=== PATIENT | female | born 1995 | race Caucasian/White ===

== ENCOUNTER 2017-07-23 17:32 | Emergency (ER) | payer OTHER ==
[2017-07-23 19:32] VITALS: BP 115/69
--- NOTE | 2017-07-23 20:04 | UC ---
Respiratory Complaint HPI - HPI Summary HPI Summary: 22 yo female with > one week hx sinus pressure and pain /post nasal drip , nasal congestion now with moderate sore throat fever/chills - History of Current Complaint Chief Complaint: UCRespiratory Stated Complaint: SINUSES Time Seen by Provider: 07/23/17 19:26 Hx Obtained From: Patient Hx Last Menstrual Period: 07/08/17 Onset/Duration: Gradual Onset, Lasting Weeks Severity Initially: Mild Severity Currently: Moderate Pain Intensity: 6 Pain Scale Used: 0-10 Numeric Character: Cough: Nonproductive Associated Signs And Symptoms: Positive: Nasal Congestion, Sinus Discomfort - Allergies/Home Medications Allergies/Adverse Reactions: Allergies Allergy/AdvReac Type Severity Reaction Status Date / Time No Known Allergies Allergy Verified 07/23/17 19:24 Home Medications: Home Medications Ibuprofen TAB* [Advil TAB*] 400 mg PO Q6H PRN 07/23/17 [History Confirmed ] Pseudoephedrine TAB* [Sudafed TAB*] 30 mg PO Q6H PRN 07/23/17 [History Confirmed 07/23/17] guaiFENesin ER TAB [Mucinex*] 600 mg PO BID 07/23/17 [History Confirmed 07/23/17 ] PMH/Surg Hx/FS Hx/Imm Hx Previously Healthy: Yes - Surgical History Surgical History: None - Family History Known Family History: Positive: Hypertension - Social History Alcohol Use: Occasionally Substance Use Type: None Smoking Status (MU): Never Smoked Tobacco Review of Systems Constitutional: Fever, Chills Skin: Negative Eyes: Negative ENT: Sore Throat, Ear Ache, Nasal Discharge Respiratory: Cough Cardiovascular: Negative Gastrointestinal: Negative Genitourinary: Negative Motor: Negative Neurovascular: Negative Musculoskeletal: Negative Neurological: Negative Psychological: Negative Is Patient Immunocompromised?: No All Other Systems Reviewed And Are Negative: Yes Physical Exam Triage Information Reviewed: Yes Appearance: Well-Appearing, No Pain Distress, Well-Nourished Vital Signs: Initial Vital Signs Temp 98.3 F 07/23/17 19:26 Pulse 114 07/23/17 19:26 Resp 16 07/23/17 19:26 BP 115/69 07/23/17 19:26 Pulse Ox 99 07/23/17 19:26 Eyes: Positive: Conjunctiva Clear ENT: Positive: Hearing grossly normal, Pharyngeal erythema, Nasal congestion, Nasal drainage, Tonsillar swelling, Sinus tenderness - max>ethmoid, Uvula midline. Negative: Tonsillar exudate, Trismus, Muffled voice, Hoarse voice Neck: Positive: Supple, Nontender, No Lymphadenopathy Respiratory: Positive: Lungs clear, Normal breath sounds, No respiratory distress, No accessory muscle use Cardiovascular: Positive: RRR, No Murmur Musculoskeletal: Positive: ROM Intact, No Edema Neurological: Positive: Alert Psychological Exam: Normal Skin Exam: Normal UC Diagnostic Evaluation - Laboratory Pertinent Lab Values Are: WNL - strep (-) O2 Sat by Pulse Oximetry: 99 - normal/not hypoxic Respiratory Course/Dx - Differential Dx/Diagnosis Provider Diagnoses: acute sinusitis. pharyngitis Discharge - Sign-Out/Discharge Documenting (check all that apply): Discharge/Admit/Transfer - Discharge Plan Condition: Stable Disposition: HOME Prescriptions: Amoxicillin PO (*) [Amoxicillin 875 MG (*)] 875 mg PO BID #20 tab Referrals: Non Staff,Doctor [Primary Care Provider] - - Billing Disposition and Condition Condition: STABLE Disposition: HOME
== END 2017-07-23 20:18 | disposition home or self-care (01) ==
LOC: UCCORT 17:32
DX: J01.90 Acute sinusitis, unspecified (principal); J02.9 Acute pharyngitis, unspecified
CPT/HCPCS: 87651; 99202; G0463

== ENCOUNTER 2018-01-21 16:45 | Emergency (ER) | payer OTHER ==
[2018-01-21 17:17] VITALS: BP 117/75
--- NOTE | 2018-01-21 17:30 | ED ---
Upper Extremity Pain - HPI Summary HPI Summary: 22 yr old female with the complaint of left thumb pain. Onset of pain today, after slamming hand in metal door. Pain is moderate in intensity. Bruising associated with hit. Worse with movement. - History of Current Complaint Chief Complaint: UCUpperExtremity Stated Complaint: RIGHT THUMB INJURY Time Seen by Provider: 01/21/18 17:21 Hx Last Menstrual Period: 01/02/18 - Allergies/Home Medications Allergies/Adverse Reactions: Allergies Allergy/AdvReac Type Severity Reaction Status Date / Time No Known Allergies Allergy Verified 01/21/18 17:10 Home Medications: Home Medications NK [No Home Medications Reported] 01/21/18 [History Confirmed 01/21/18] PMH/Surg Hx/FS Hx/Imm Hx Infectious Disease History: No Infectious Disease History: Denies: Traveled Outside the [place] in Last 30 Days - Family History Known Family History: Positive: Hypertension - Social History Alcohol Use: Occasionally Substance Use Type: Reports: None Smoking Status (MU): Never Smoked Tobacco Review of Systems Constitutional: Negative Positive: Other - thumb pain All Other Systems Reviewed And Are Negative: Yes Physical Exam Triage Information Reviewed: Yes Vital Signs On Initial Exam: Initial Vitals Temp Pulse Resp BP Pulse Ox 98 F 73 18 117/75 99 01/21/18 17:11 01/21/18 17:11 01/21/18 17:11 01/21/18 17:11 01/21/18 17:11 Vital Signs Reviewed: Yes Appearance: Positive: Well-Appearing, No Pain Distress Skin: Positive: Warm Head/Face: Positive: Normal Head/Face Inspection Neck: Positive: Nontender Respiratory/Lung Sounds: Positive: Clear to Auscultation, Breath Sounds Present Cardiovascular: Positive: RRR. Negative: Murmur Abdomen Description: Positive: Nontender Musculoskeletal: Positive: Strength/ROM Intact, Other - bruisin over the proximal thumb and small sub ungal hematoma, tender over the middle and distal phalynx thumb. Neurological: Positive: Sensory/Motor Intact, Alert, Oriented to Person Place, Time, CN Intact II-III Psychiatric: Positive: Normal Diagnostics - Vital Signs Vital Signs Temp Pulse Resp BP Pulse Ox 01/21/18 17:11 98 F 73 18 117/75 99 - Laboratory Lab Statement: Any lab studies that have been ordered have been reviewed, and results considered in the medical decision making process. - Radiology left thumb Radiology Interpretation Completed By: Radiologist Summary of Radiographic Findings: NAD Course/Dx - Course Course Of Treatment: 22 yr old with contusion to thumb. DC home. - Diagnoses Provider Diagnoses: Contusion, thumb Discharge - Sign-Out/Discharge Documenting (check all that apply): Patient Departure All imaging exams completed and their final reports reviewed: Yes - Discharge Plan Condition: Good Disposition: HOME Patient Education Materials: Contusion in Adults (ED) Referrals: No Primary Care Phys,NOPCP [Primary Care Provider] [facility] - Billing Disposition and Condition Condition: GOOD Disposition: Home
--- NOTE | 2018-01-21 17:57 | RAD ---
HISTORY: pain in thumb and 1st metacarpal, slammed in door COMPARISONS: None VIEWS: 3 , Frontal, lateral, and oblique views of the first digit of the left hand FINDINGS: BONE DENSITY: Normal. BONES: There is no displaced fracture. JOINTS: There is no arthropathy. ALIGNMENT: There is no dislocation. SOFT TISSUES: Unremarkable. OTHER FINDINGS: None. IMPRESSION: NO ACUTE OSSEOUS INJURY. IF SYMPTOMS PERSIST, RECOMMEND REPEAT IMAGING.
== END 2018-01-21 18:06 | disposition home or self-care (01) ==
LOC: UCCORT 16:45
DX: S60.012A Contusion of left thumb without damage to nail, initial encounter (principal); W23.0XXA Caught, crushed, jammed, or pinched between moving objects, initial encounter; Y92.9 Unspecified place or not applicable
CPT/HCPCS: 99212; G0463

== ENCOUNTER 2018-05-30 16:15 | Emergency (ER) | payer OTHER ==
[2018-05-30 18:03] VITALS: BP 106/69
--- NOTE | 2018-05-30 18:43 | UC ---
Throat Pain/Nasal Tobin HPI - HPI Summary HPI Summary: 23-year-old female presents with a 9 day history of possibly worsening nasal congestion, nasal discharge, sinus pressure, postnasal, mild sore throat, and an occasionally productive cough for yellow sputum. Symptoms associated with some chills but no known fever. States she was using Mucinex with no improvement so was seen in the [facility] 2 days ago and given a decongestant with no improvement. States she has also been using fluticasone nasal spray. Denies ear pain, dysphagia, chest pain, difficulty breathing, abdominal pain, nausea, vomiting, diarrhea. - History of Current Complaint Chief Complaint: UCGeneralIllness Stated Complaint: COUGH,CONGESTION Time Seen by Provider: 05/30/18 18:10 Hx Obtained From: Patient Hx Last Menstrual Period: 05/17/18 Pain Intensity: 4 - Allergies/Home Medications Allergies/Adverse Reactions: Allergies Allergy/AdvReac Type Severity Reaction Status Date / Time No Known Allergies Allergy Verified 05/30/18 17:56 Home Medications: Home Medications Pseudoephedrine HCl [Nasal Decongestant] 30 mg PO Q4H PRN 05/30/18 [History Confirmed 05/30/18] guaiFENesin ER TAB [Mucinex*] 600 mg PO BID PRN 05/30/18 [History Confirmed 04/19] PMH/Surg Hx/FS Hx/Imm Hx Previously Healthy: Yes - Denies significant PMH - Surgical History Surgical History: None - Family History Known Family History: Positive: Hypertension - Social History Occupation: Student Lives: Dormitory/Roommates Alcohol Use: Occasionally Substance Use Type: None Smoking Status (MU): Never Smoked Tobacco Review of Systems All Other Systems Reviewed And Are Negative: Yes Constitutional: Positive: Chills. Negative: Fever Eyes: Negative: Drainage, Eye Redness ENT: Positive: Sore Throat, Nasal Discharge, Sinus Congestion, Sinus Pain/ Tenderness. Negative: Ear Ache Respiratory: Positive: Cough. Negative: Shortness Of Breath Cardiovascular: Negative: Palpitations, Chest Pain Gastrointestinal: Negative: Abdominal Pain, Vomiting, Diarrhea, Nausea Genitourinary: Positive: Negative Musculoskeletal: Positive: Negative Neurological: Positive: Negative Is Patient Immunocompromised?: No Physical Exam - Summary Physical Exam Summary: GENERAL APPEARANCE: Well developed, well nourished, alert and cooperative, and appears to be in no acute distress. EYES: Conjunctiva clear. No drainage. Vision is grossly intact. EARS: External auditory canals and tympanic membranes clear, hearing grossly intact. NOSE: Moderate nasal congestion. No nasal discharge. Maxillary sinus tenderness with palpation. THROAT: Pharynx normal. No tonsilar inflammation, swelling, exudate, or lesions. Uvula midline. Oral cavity normal. Teeth and gingiva in good general condition. NECK: Neck supple, non-tender without lymphadenopathy. CARDIAC: Normal S1 and S2. No S3, S4 or murmurs. Rhythm is regular. There is no peripheral edema, cyanosis or pallor. Extremities are warm and well perfused. Capillary refill is less than 2 seconds. Peripheral pulses intact. LUNGS: Clear to auscultation without rales, rhonchi, wheezing or diminished breath sounds. ABDOMEN: Positive bowel sounds. Soft, nondistended, nontender. No guarding or rebound. No masses or hepatosplenomegally. MUSKULOSKELETAL: ROM intact to all extremities. No joint erythema or tenderness. Normal muscular development. Normal gait. SKIN: Skin normal color, texture and turgor with no lesions or eruptions. Triage Information Reviewed: Yes Vital Signs: Initial Vital Signs Temp 98 F 05/30/18 17:59 Pulse 82 05/30/18 17:59 Resp 16 05/30/18 17:59 BP 106/69 05/30/18 17:59 Pulse Ox 99 05/30/18 17:59 Vital Signs Reviewed: Yes Throat Pain/Nasal Course/Dx - Course Assessment/Plan: 23-year-old female presents with a 9 day history of possibly worsening nasal congestion, nasal discharge, sinus pressure, postnasal, mild sore throat, and an occasionally productive cough for yellow sputum. Symptoms associated with some chills but no known fever. States she was using Mucinex with no improvement so was seen in the [facility] 2 days ago and given a decongestant with no improvement. States she has also been using fluticasone nasal spray. Denies ear pain, dysphagia, chest pain, difficulty breathing, abdominal pain, nausea, vomiting, diarrhea. Afebrile. Vital signs stable. Exam reveals a young adult female in no acute distress with moderate nasal congestion, some maxillary sinus tenderness, mild pharyngeal erythema without tonsillar swelling or exudate, no cervical lymphadenopathy, clear bilateral breath sounds, and otherwise unremarkable exam. Symptoms are likely from a acute sinus infection and considering the duration of her symptoms and progressively worsening of symptoms I will treat her for possible secondary bacterial infection with Augmentin 875 mg twice a day 10 days as well as symptomatic care. She is to return here or follow up with the hospital [facility] in 57 days if symptoms do not improve. Despite very guidance and warning symptoms were reviewed with the patient. Verbalizes understanding and agrees with plan of care. - Differential Dx/Diagnosis Differential Diagnosis/HQI/PQRI: Otitis Media, Pharyngitis, Sinusitis, URI Provider Diagnosis: Acute sinusitis Discharge - Sign-Out/Discharge Documenting (check all that apply): Patient Departure All imaging exams completed and their final reports reviewed: No Studies - Discharge Plan Condition: Stable Disposition: HOME Prescriptions: Amoxicillin/Clavulanate TAB* [Augmentin TAB 875*] 875 mg PO BID #20 tab Patient Education Materials: Sinusitis (ED) Referrals: No Primary Care Phys,NOPCP [Primary Care Provider] - Additional Instructions: Your history and exam are consistent with a sinus infection. Considering the duration and worsening of symptoms we will start you on an antibiotic for a secondary bacterial infection. Start Augmentin 1 tab twice a day for 10 days. Take with food to avoid upset stomach. Be sure to complete the full course even if felling better. Drink plenty of fluids to avoid dehydration especially if you are running any fever. Use a saline rinse kit such as Neti Pot or NeilMed at least twice a day to help thin secretions and promote drainage of the sinuses. Continue to use your fluticasone (Flonase) nasal spray 2 sprays each nostril once daily. Use an over the counter decongestant such as Sudafed according to directions to help with congestion. Take over the counter acetaminophen (Tylenol) or ibuprofen (Advil, Motrin) according to directions as needed for pain or fever. Return here or follow up at the hospital [facility] in 5-7 days if symptoms do not improve. Seek immediate medical attention in the emergency room if you have fever greater than 100.5 F despite taking acetaminophen or ibuprofen, have chest pain , difficulty breathing, are unable to swallow, or have any worsening of symptoms. - Billing Disposition and Condition Condition: STABLE Disposition: Home - Attestation Statements Provider Attestation: I was available for consult. This patient was seen by the ROB. The patient was not presented to, seen by, or examined by me. EK
[2018-05-30] MEDS ORDERED: Amoxicillin/Clavulanate TAB* 875 MG PO ONE (18:46)
== END 2018-05-30 18:57 | disposition home or self-care (01) ==
LOC: UCCORT 16:15
DX: J01.90 Acute sinusitis, unspecified (principal)
CPT/HCPCS: 99212; A9270-GY; G0463

== ENCOUNTER 2018-08-09 20:37 | Emergency (ER) | payer OTHER ==
[2018-08-09 20:54] VITALS: BP 141/74
--- NOTE | 2018-08-09 21:00 | UC ---
General HPI - HPI Summary HPI Summary: pt got mad and head butted a tree about 1.5 hours ago. she is c/o a cut just above her forehead. she denies any LOC, headache, neck pain and n/v'ing. her tetanus is utd. - History of Current Complaint Stated Complaint: LACERATION FOREHEAD Time Seen by Provider: 08/09/18 20:47 Hx Obtained From: Patient Hx Last Menstrual Period: 05/17/18 Onset/Duration: Sudden Onset Timing: Constant Associated Signs & Symptoms: Negative: Headache - Allergy/Home Medications Allergies/Adverse Reactions: Allergies Allergy/AdvReac Type Severity Reaction Status Date / Time No Known Allergies Allergy Verified 08/09/18 20:54 Home Medications: Home Medications NK [No Home Medications Reported] 08/09/18 [History Confirmed 08/09/18] PMH/Surg Hx/FS Hx/Imm Hx Previously Healthy: Yes - Surgical History Surgical History: None - Family History Known Family History: Positive: Hypertension - Social History Occupation: Student Alcohol Use: Occasionally Substance Use Type: None Smoking Status (MU): Never Smoked Tobacco - Immunization History Hx Tetanus, Diphtheria Vaccination: Yes Vaccination Up to Date: Yes Review of Systems All Other Systems Reviewed And Are Negative: Yes Eyes: Negative: Blurred Vision, Diplopia Gastrointestinal: Negative: Vomiting, Nausea Musculoskeletal: Positive: Other: - no neck/back pain Neurological: Negative: Headache Physical Exam Triage Information Reviewed: Yes Appearance: Well-Appearing Vital Signs Reviewed: Yes Eyes: Positive: Conjunctiva Clear, Other: - perrl, eomi. ENT: Positive: Pharynx normal, TMs normal. Negative: Nasal congestion, Nasal drainage Neck: Positive: Supple, Nontender, No Lymphadenopathy, Other: - c-spine non tender. Respiratory: Positive: No respiratory distress Cardiovascular: Positive: RRR. Negative: Tachycardia Neurological: Positive: Other: - A&Ox3. CN grossly intact. Steady gait. Psychological: Positive: Age Appropriate Behavior Skin Exam: Normal, Other - 2cm vertical laceration to front of scalp over her center part. Slight fat seen but no FB's. No step off or instability. Only scant bleeding. Course/Dx - Course Course Of Treatment: I spoke to pt's father on pt's cell phone. he is comfortable with tx plan of closure with darion. PROCEDURE: time out done. site cleaned with soap and water. site then flushed with sterile NACL. no FB's seen. wound prepped with betadine then closed with 2 darion. lidocaine was offered; however, pt opted for closure without. - Diagnoses Provider Diagnosis: Scalp laceration Discharge - Sign-Out/Discharge Documenting (check all that apply): Patient Departure All imaging exams completed and their final reports reviewed: No Studies - Discharge Plan Condition: Stable Disposition: HOME Patient Education Materials: Head Injury (ED), Staple Care (ED) Referrals: No Primary Care Phys,NOPCP [Primary Care Provider] - Additional Instructions: RETURN TO THIS FACILITY IN 5 DAYS FOR STAPLE REMOVAL. - Billing Disposition and Condition Condition: STABLE Disposition: Home
[2018-08-09] MEDS ORDERED: Ibuprofen ADULT LIQ* 600 MG/30 ML UDC PO ONE (21:12)
== END 2018-08-09 21:21 | disposition home or self-care (01) ==
LOC: UCCORT 20:37
DX: S01.01XA Laceration without foreign body of scalp, initial encounter (principal); W22.09XA Striking against other stationary object, initial encounter; Y92.9 Unspecified place or not applicable
CPT/HCPCS: 12001; 99212; A9270-GY; G0463

== ENCOUNTER 2018-08-14 10:37 | Emergency (ER) | payer OTHER ==
[2018-08-14 11:09] VITALS: BP 111/68
--- NOTE | 2018-08-14 11:25 | UC ---
Skin Complaint HPI - HPI Summary HPI Summary: Pt presents with request for having darion removed that were placed here on 02/17. Pt denies any discharge, wrosening tenderness fever, chills, red streaking from wound site. - History of Current Complaint Chief Complaint: UCSkin Time Seen by Provider: 08/14/18 11:09 Stated Complaint: STUTURE REMOVAL Hx Obtained From: Patient Hx Last Menstrual Period: 08/11/18 ?: No Onset/Duration: Sudden Onset, Still Present Skin Exposure Onset/Duration: Days Ago - 5 days ago Timing: Constant Onset Severity: Moderate Current Severity: Mild Pain Intensity: 0 Location: Discrete, Face - center of forehead. Character: Painful Aggravating Factor(s): Touch Alleviating Factor(s): Other - not palpating wound Associated Signs & Symptoms: Positive: Tenderness Related History: Other: - prior laceration - Allergy/Home Medications Allergies/Adverse Reactions: Allergies Allergy/AdvReac Type Severity Reaction Status Date / Time No Known Allergies Allergy Verified 08/14/18 11:04 PMH/Surg Hx/FS Hx/Imm Hx Previously Healthy: Yes - Surgical History Surgical History: None - Family History Known Family History: Positive: Hypertension - Social History Occupation: Student Lives: Dormitory/Roommates Alcohol Use: Occasionally Alcohol Amount: few times a week Substance Use Type: None Smoking Status (MU): Never Smoked Tobacco Have You Smoked in the Last Year: No - Immunization History Most Recent Tetanus Shot: age 19 Hx Tetanus, Diphtheria Vaccination: Yes Vaccination Up to Date: Yes Review of Systems All Other Systems Reviewed And Are Negative: Yes Constitutional: Positive: Negative Skin: Positive: Other - two darion intact in center of forehead Eyes: Positive: Negative ENT: Positive: Negative Respiratory: Positive: Negative Cardiovascular: Positive: Negative Gastrointestinal: Positive: Negative Genitourinary: Positive: Negative Motor: Positive: Negative Neurovascular: Positive: Negative Musculoskeletal: Positive: Negative Neurological: Positive: Negative Psychological: Positive: Negative Is Patient Immunocompromised?: No Physical Exam Triage Information Reviewed: Yes Appearance: Well-Appearing, Other: - pt became tearful during staple removal [place] were difficult to remove and wound partially reopened. I requested that Dr. Amaro help in the removal of darion. Vital Signs: Initial Vital Signs Temp 98.3 F 08/14/18 11:04 Pulse 83 08/14/18 11:04 Resp 16 05/16/19 11:04 BP 111/68 08/14/18 11:04 Pulse Ox 99 08/14/18 11:04 Vital Signs Reviewed: Yes Eye Exam: Normal ENT Exam: Normal Dental Exam: Normal Neck exam: Normal Respiratory: Positive: Normal breath sounds Musculoskeletal Exam: Normal Neurological Exam: Normal Psychological Exam: Normal Skin Exam: Other - Darion are intact, difficult to remove and then wound partially reopened. Pt was tearful during removal. Course/Dx - Course Course Of Treatment: The darion were difficult to remove and wound partially reopened and skin adhesive was applied. - Differential Diagnoses - Skin Complaint Differential Diagnoses: Other - staple removal - Diagnoses Provider Diagnosis: Removal of darion Discharge - Sign-Out/Discharge Documenting (check all that apply): Patient Departure All imaging exams completed and their final reports reviewed: No Studies - Discharge Plan Condition: Stable Disposition: HOME Patient Education Materials: Stitches Removal (ED) Referrals: [facility] [place] [facility] [Outside] No Primary Care Phys,NOPCP [Primary Care Provider] - Additional Instructions: Please follow up with your PCP as needed. - Billing Disposition and Condition Condition: STABLE Disposition: Home
== END 2018-08-14 11:37 | disposition home or self-care (01) ==
LOC: UCCORT 10:37
DX: Z48.02 Encounter for removal of sutures (principal)
CPT/HCPCS: 99211; G0463